=== PATIENT | female | born 1950 | race Caucasian/White ===

== ENCOUNTER 2019-01-31 21:45 | Inpatient (IN) | payer OTHER ==
[~2019-01-31] VITALS: Ht 160 cm; Wt 103.0 kg
[2019-02-03 17:28] VITALS: BP 110/44
--- NOTE | 2019-02-03 17:28 | NUR ---
PT ARRIVED TO UNIT VIA EMS. PT ACCOMPANIED BY DAUGHTER AND FAMILY. PT RUBBING ABD AND STATED SHE HAS PAIN TO ABD. UNABLE TO RATE PAIN LEVEL. PT HERE DUE TO THREATEN TO USE KNIFE TO CUT SELF DUE TO BEING A BURDON TO FAMILY. PT FELL IN SEPTEMBER THIS YEAR AND FX RT LEG. PT DAUGHTER AT BEDSIDE AND STATED THAT HER EMANUEL LEAVES HER UPSTAIRS WITH HER MEDICATION SITTING BESIDE HER AND GOES DOWNSTAIRS, PT FELL IN SEPTEMBER DUE TO OVER MEDICATION. PT DAUGHTER ALSO STATED THAT ONE TIME HE THOUGHT SHE WAS NOT BREATHING AND CHECKED HER PULSE AND SHE HAD A PULSE. PT ORIENTED TO SELF. PT WANTING TO DRINK TOMATO JUICE AND WANTING SOME TYPE OF TORTILLIA ROLL. DAUGHTER STATED THAT HER GRANDFATHER, PT FATHER WAS A CHILD MOLESTER AND THAT NEEDS TO BE BROUGHT UP. PT CAN ONLY TRANSFER VIA SUKUMAR LIFT. PT HAS SOME BRUISING TO ARMS BILATERALY DUE TO IV STICKS AT HOSPITAL. ARRIVED AND SIGNED DPOA PAPERWORK. HE STATED HE WILL BRING IN PAPERS TOMMORROW DUE TO THEM BEING IN THE BANK. PT VOIDED X1 INCON DURING ADMISSION.
[2019-02-03] MEDS ORDERED: KEFLEX500 M1 PO (20:12)
[2019-02-03] MEDS ORDERED: KRISTALOSE20 GM PO (20:14)
[2019-02-03] MEDS ORDERED: MELATONIN3 M1 PO (20:16)
[2019-02-03] MEDS ORDERED: FLOMAX0.4 MG PO (20:16)
[2019-02-03] MEDS ORDERED: AMITIZA 24 MCG24 MC1 PO (20:18)
[2019-02-03] MEDS ORDERED: VITAMIN C500 M2 PO (20:19)
[2019-02-03] MEDS ORDERED: BUPROPION XL300 MG PO (20:20)
[2019-02-03] MEDS ORDERED: EVOXAC30 MG PO (20:20)
[2019-02-03] MEDS ORDERED: VITAMIN D31000 UNIT PO (20:22)
[2019-02-03] MEDS ORDERED: CYPROHEPTADINE 44 MG PO (20:26)
[2019-02-03] MEDS ORDERED: FERROUS SULFAT325 MG PO (20:28)
[2019-02-03] MEDS ORDERED: LASIX 40 MG TAB40 MG PO (20:29)
[2019-02-03] MEDS ORDERED: NEURONTIN300 MG PO (20:29)
[2019-02-03] MEDS ORDERED: HYDROCODON-ACE1 EAC7 PO ×2 (20:32→20:33)
[2019-02-03] MEDS ORDERED: OMEPRAZOLE 20 M20 M1 PO (20:38)
[2019-02-03] MEDS ORDERED: XARELTO10 M1 PO (20:40)
[2019-02-03] MEDS ORDERED: KLOR-CON M2020 MEQ PO (20:40)
[2019-02-03] MEDS ORDERED: TIZANIDINE HCL4 M1 PO (20:45)
[2019-02-03] MEDS ORDERED: TRAZODONE 150150 M1 PO (20:46)
[2019-02-03 23:01] VITALS: BP 120/70
--- NOTE | 2019-02-04 01:58 | NUR ---
ASSUMED CARE FROM DAY SHIFT PT RESTING IN BED INCONTINENT OF URINE PT ABLE TO TURN FRON SIDE TO SIDE WHEN CLEANING AND CHANGING LINEN. ASSESSMENT COMPLETED WITH FAMILY AT BEDSIDE. WHEN MEDICATION WAS GIVEN PT STATES SHE TAKE MEDICATION WITH APPLE SAUCE, WHEN TAKEN PT THEN SPIT MEDICATION OUT UNTO THE FLOOR , WHY ASK PT WHY SHE SPIT MEDICATION OUT , SHE STATED" I WANTED TO". PUBLIC WORKS LABORER CAME TO FLOOR TO TALK WITH PT AND PT BECAME AGRESSIVE WITH HER BY GRABBING HER PAPERS OUT OF HAND. PT THEN TURNED TO SIDE AND WENT TO SLEEP. FREQ CHECKS FOR SAFETY, BED ALARM ON, WILL CONITNUE TO MONITOR AND REPORT CHANGES AND ABNORMAL FINDINGS.
[2019-02-04 09:12] VITALS: BP 121/68
[2019-02-04 10:09] VITALS: BP 121/68
--- NOTE | 2019-02-04 10:19 | NUR ---
0700 Received report from overnight shift, patient is in bed due to injury to femur. Patient denies any suicidal ideations, patient states she wants to go home. Patient ate and took medication. Patient is calm affect flat, I called outside pharmacy for medication list. Staff will continue to monitor patient for safety.
[2019-02-04 20:00] VITALS: BP 153/69
[2019-02-04 22:59] VITALS: BP 153/69
--- NOTE | 2019-02-05 00:35 | NUR ---
PATIENT HAS BE RESTING AND SLEEPING IN BED SINCE 190. SHE IS NON-WEIGHTBEARING ON RIGHT LEG. HYDROCODONE TAB GIVEN TO PATIENT AT 0020 FOR RIGHT KNEE PAIN. SHE HAS BEEN ON THE BED MEJIA WITH 2 DIARHEA STOOLS AND GAS. PATIENT HAS NOT HAD HALLUCINATIONS/DELUSIONS SO FAR THIS SHIFT. SHE HAS BEEN CALM AND COOPERATIVE. SHE DENIES SI. CONTINUING TO MONITOR STOOLS. PATIENT RESTING. BED ALARM ON AND BED IN LOW POSITION.
[2019-02-05 10:01] VITALS: BP 131/64; BP 153/69
--- NOTE | 2019-02-05 10:11 | NUR ---
0701 Report received from overnight shif, Staff helped patient get cleaned up some incontience last night. Patient complained that when she moves she in in pain. At breafast patient's hands very shakey, she spilled everything onto her self and the table. Patient flustered she was making a mwss. I talked with Nurse Practioner Inocencio and he ordered cogentin for the patient. I also suggested occupational therapy to help with daily life skills. Patient is quiet cooperative.
[2019-02-05 12:50] VITALS: BP 131/64
[2019-02-05 14:02] LABS: HEMATOCRIT 39.1 % (37.0-47.0); HEMOGLOBIN 13.2 gm/dL (12.0-15.0); MCH 31.8 pg (26.0-34.0); MCHC 33.7 g/dL (28.0-37.0); MCV 94.1 fL (80.0-100.0); PLATELET COUNT 187 thou/uL (150-400); RBC 4.15 mil/uL (4.20-5.00); WBC 7.4 thou/uL (4.0-11.0)
--- NOTE | 2019-02-05 14:16 | NUR ---
Gil met with pt while in the day room. She was soft spoken and had difficulty hearing and then responding to the questions. She was able to report that she was wanting to return home , to " see my dogs". Gil called and left 2 for pt's spouse this weekend
[2019-02-05 14:17] LABS: ALBUMIN 2.3 g/dL (3.4-5.0); CALCIUM 9.7 mg/dL (8.5-10.1); POTASSIUM 4.7 mmol/L (3.5-5.1); TOTAL BILIRUBIN 2.4 mg/dL (<0.1-1.0); TOTAL PROTEIN 6.3 g/dL (6.4-8.2)
[2019-02-05 14:44] LABS: ABSOLUTE NEUTROPHILS 3.6 thou/uL (1.4-8.2)
[2019-02-05 19:51] VITALS: BP 130/79
[2019-02-05 23:22] VITALS: BP 130/79
--- NOTE | 2019-02-06 00:25 | NUR ---
PATIENT SLEEPING SO SOUNDLY. PATIENT VERY SEDATED AND WAS NOT ABLE TO TAKE HER CEPHALEXIN TABLET. SHE HAS BEEN CALM AND COOPERATIVE TONIGHT. SPOKE 1:1 WITH PATIENT AND SHE STATES SHE IS A LITTLE DEPRESSED BECAUSE SHE JUST WANTS TO BE ABLE TO GET BETTER AND USE HER LEGS TO HELP HER GET AROUND. ENCOURAGED HER IN HER PENTECOSTAL DAVI TO TURN OVER TO GOD AND CONTINUE WORKING ON IMPROVEMENT AND GETTING BETTER. DISCUSSED THE IMPORTANCE OF GRATITUDE AND TO CONCENTRATE ON WHAT SHE HAS TO BE THANKFUL FOR. PATIENT SAID SHE FELT MORE ENCOURAGED AND KNOWS THIS IS A LONG RIDE. LISTENED AND VALIDATED HER FEELINGS OF DISCOURAGEMENT. PATIENT HAS NOT HAD ANY BM'S TONITE. SHE HAD 2 DIARHEA STOOLS LAST EVENING AND NONE SINCE THEN. NYSTATIN POWDER APPLIED TO GENITAL/GROIN FOLDS WHERE RED AND MOIST. HYDROCODONE 1 TAB PO GIVEN FOR PAIN WITH HS MEDS. PATIENT SLEEPING WELL.
--- NOTE | 2019-02-06 19:45 | NUR ---
ASSUMED CARE @ 19:15 ON 02/06/19. IN BED, EYES CLOSED, OPENS EYES TO VOICE, RIGHT LEG JERKING AND SITTING UP FROM THE ABDOMEN IN JERKY MOVEMENTS. DENIES PAIN, DENIES NEEDS, UNABLE TO GIVE NAME OR ANSWER ASSESSMENT QUESTION. WILL CONTINUE TO MONITOR Q 12 MINUTES FOR PATIENT SAFETY. BED IN LOW POSIITON, BED ALARM ON.
[2019-02-06 20:10] VITALS: BP 111/89
[2019-02-07 00:50] VITALS: BP 111/89
[2019-02-07 04:25] LABS: BE(vivo) 1.7 mmol/L (-2 to +3); HCO3 23.4 mmol/L (22.0-26.0); PCO2 28.2 mmHg (35.0-45.0); pH 7.536 (7.360-7.450)
[2019-02-07 04:29] LABS: PO2 0 mmHg (80.0-100.0)
--- NOTE | 2019-02-07 04:30 | NUR ---
This nurse entered room to assist with emelina care and linen change. Patient having involuntary movements throughout her body. Not responding to voice. Not responding to painful stimuli. Head tilted to right side. Mucous and saliva coming from right side of mouth. BP 150/62, HR 83, Temp 98.6, O2 92% RA. Luz NP called to assess patient. Rapid response called. Order placed for ABGs STAT, CT w/o contrast STAT, BMP/CBC/Ammonia level STAT. ABGs collected by RT. Patient currently in CT with staff assist x2. Blood sugar 73. Patient having decreased level of consciousness and increased involuntary body movements generalized about her body. No hx of seizure activity found in medical record. Medications were d/c'd on 02/06/19 due to increased lethargy. Patient was having some involuntary movements to her right lower extremity when assessed earlier in the shift but was responsive and stated her name.
[2019-02-07 05:16] LABS: BE(vivo) 4.2 mmol/L (-2 to +3); HCO3 27.3 mmol/L (22.0-26.0); PCO2 35.7 mmHg (35.0-45.0); PO2 61.3 mmHg (80.0-100.0); pH 7.501 (7.360-7.450); sO2 93.5 % (92.0-98.0)
[2019-02-07 05:44] LABS: HEMATOCRIT 35.4 % (37.0-47.0); HEMOGLOBIN 12.1 gm/dL (12.0-15.0); MCH 31.9 pg (26.0-34.0); MCHC 34.1 g/dL (28.0-37.0); MCV 93.6 fL (80.0-100.0); RBC 3.78 mil/uL (4.20-5.00); RDW 15.9 % (10.5-14.5); WBC 9.9 thou/uL (4.0-11.0)
[2019-02-07 05:47] LABS: URINE BILIRUBIN NEGATIVE (Negative); URINE BLOOD NEGATIVE (Negative); URINE CLARITY CLEAR; URINE COLOR YELLOW; URINE GLUCOSE-RANDOM* NEGATIVE (Negative); URINE KETONES TRACE (Negative); URINE LEUKOCYTES-REFLEX TRACE (Negative); URINE NITRITE-REFLEX NEGATIVE (Negative); URINE PROTEIN (DIPSTICK) NEGATIVE (Negative)
[2019-02-07 05:50] LABS: CALCIUM 9.3 mg/dL (8.5-10.1); CREATININE 1.4 mg/dL (0.6-1.0)
[2019-02-07 05:56] LABS: ALBUMIN 2.2 g/dL (3.4-5.0); DIRECT BILIRUBIN 1.6 mg/dL (<0.1-0.3); TOTAL BILIRUBIN 2.4 mg/dL (<0.1-1.0); TOTAL PROTEIN 5.9 g/dL (6.4-8.2)
--- NOTE | 2019-02-07 05:56 | NUR ---
TRICHOLOGIST ACTIVATED FOR AMS. SEE RAPID RESPONSE DOCUMENTATION FOR ADDITIONAL DETAILS AND INTERVENTIONS. PT TX'D TO MST.
--- NOTE | 2019-02-07 06:21 | NUR ---
Order obtained to admit patient to medical floor for AMS. Spoke with patient , Ford, to notify him of patient being transferred to room 350 for altered mental status. Notified him of blood results received and current patient condition. Ford asked about the visiting hours, which he was notified of. Ford appreciative of call. Personal belongings gathered and sent to patient to new room. 2 nurses signed on discharge personal belongings list.
--- NOTE | 2019-02-07 06:33 | NUR ---
report given to [facility], patient going to rm 350.
== END 2019-02-07 06:35 | disposition short-term general hospital (02) | DRG 885 ==
LOC: SBH 21:45
PROVIDERS: Internal Medicine; Nurse Practitioner Acute Care; ADMIT Psychiatry & Neurology Psychiatry
DX: F23 Brief psychotic disorder (principal); F33.2 Major depressive disorder, recurrent severe without psychotic features; J96.10 Chronic respiratory failure, unspecified whether with hypoxia or hypercapnia; Z68.41 Body mass index [BMI] 40.0-44.9, adult; N39.0 Urinary tract infection, site not specified; F29 Unspecified psychosis not due to a substance or known physiological condition; E66.01 Morbid (severe) obesity due to excess calories; I48.91 Unspecified atrial fibrillation; F41.9 Anxiety disorder, unspecified; K58.1 Irritable bowel syndrome with constipation; R32 Unspecified urinary incontinence; K58.0 Irritable bowel syndrome with diarrhea; Z91.041 Radiographic dye allergy status; Z88.6 Allergy status to analgesic agent; Z87.440 Personal history of urinary (tract) infections
CPT/HCPCS: 10880

== ENCOUNTER 2019-02-07 06:03 | Inpatient (IN) | payer OTHER ==
[~2019-02-07] VITALS: Ht 157.5 cm; Wt 102.2 kg
[~2019-02-07 06:03] MED LIST: AMITIZA 24 MCG24 MC1 PO; BUPROPION XL300 MG PO; CYPROHEPTADINE 44 MG PO; EVOXAC30 MG PO; FERROUS SULFAT325 MG PO; FLOMAX0.4 MG PO; HYDROCODON-ACE1 EAC7 PO; KEFLEX500 M1 PO; KLOR-CON M2020 MEQ PO; KRISTALOSE20 GM PO; LASIX 40 MG TAB40 MG PO; MELATONIN3 M1 PO; NEURONTIN300 MG PO; OMEPRAZOLE 20 M20 M1 PO; TIZANIDINE HCL4 M1 PO; TRAZODONE 150150 M1 PO; VITAMIN C500 M2 PO; VITAMIN D31000 UNIT PO; XARELTO10 M1 PO
[2019-02-07 07:30] VITALS: BP 124/51
[2019-02-07 11:30] VITALS: BP 121/47; BP 133/51
--- NOTE | 2019-02-07 15:43 | NUR ---
INITIAL ASSESSMENT: Pt evaluated for d/c planning needs. Reviewed chart and spoke with nurse, pt, spouse and daughter. Pt does not respond during interview. Pt had been living at home with and has been in and out of facilities since October 2018 when she fell. Pt was hospitalized at [facility], then went to [facility]. She transferred to [facility] for [facility] continuous churn care and then was hospitalized at [facility]. Pt was transferred [facility] at [facility] and then to acute care. Pt is non-weight bearing on her right leg and has been confined to wheelchair. Will remain available to assist as needed.
[2019-02-07 16:59] LABS: URINE BILIRUBIN NEGATIVE (Negative); URINE BLOOD NEGATIVE (Negative); URINE CLARITY CLEAR; URINE COLOR YELLOW; URINE GLUCOSE-RANDOM* NEGATIVE (Negative); URINE KETONES NEGATIVE (Negative); URINE LEUKOCYTES-REFLEX TRACE (Negative); URINE NITRITE-REFLEX NEGATIVE (Negative); URINE PROTEIN (DIPSTICK) NEGATIVE (Negative)
[2019-02-07 17:24] VITALS: BP 142/51
[2019-02-07 19:23] VITALS: BP 145/63
--- NOTE | 2019-02-07 19:41 | NUR ---
pt admitted to 3 W about 6am, pt is confused, and pt does not talk, and does not follow commands, pt only opens her eyes by voice, pt is on npo , and she is contiuing D5 NS @125ML/HR, NG tube in place, RN has called dr pt does have urine for 7hr, bladder scan result show 350ml. new order Morrow insert. pt's vs and o2sat are stable, pt's family stay at pt's bedside.
[2019-02-08 03:37] VITALS: BP 150/87
--- NOTE | 2019-02-08 06:06 | NUR ---
PT ARRIVED TO UNIT FROM [address] [place] [address]. PT HAS BEEN COMATOSE ALL SHIFT, WITH TREMORS. PT GIVEN LACTULOSE X2 OVER SHIFT. AT 0100 PT STARTED TO RUN 120-130 HR FOR 15 MIN. PULLED PT UP IN BED, PUT ON 4L NC, AND GOT ORDER FOR 5MG LOPRESSOR IV. HR DROPPED TO 80-105 FOR REST OF SHIFT. PT HAS NG TUBE IN PLACE. FAMILY ROOMING IN. SISTER STATES, "SHE TAKES A LOT OF PAIN MEDICATION WHEN SHE IS AT HOME." MORENO IN PLACE. NO BM OVERNIGHT. HOURLY ROUNDING.
[2019-02-08 08:08] VITALS: BP 149/95
[2019-02-08 08:50] LABS: ALBUMIN 2.3 g/dL (3.4-5.0); CALCIUM 8.9 mg/dL (8.5-10.1); CREATININE 1.2 mg/dL (0.6-1.0); POTASSIUM 4.5 mmol/L (3.5-5.1); TOTAL BILIRUBIN 3.1 mg/dL (<0.1-1.0); TOTAL PROTEIN 6.6 g/dL (6.4-8.2)
--- NOTE | 2019-02-08 09:53 | NUR ---
ASSUMED CARE OF PATIENT AT 0700. AROUND 0800 PATIENT FAMILY ALERTED RN THAT OXYGEN SATURATION WAS BETWEEN 88-89. RT WAS ON THE FLOOR AND RN SPOKE WITH RT WHO MADE HER WAY TO THEIR ROOM AND PLACED PATIENT ON VENTIMASK 50% 15L. PHYSICAN AWARE AND RN SUGGESTED PULMONARY CONSULT.
--- NOTE | 2019-02-08 10:19 | NUR ---
WOUND CARE NOTE; PT UNRESPONSIVE, SISTER PRESENT, JUAN CARLOS RASH LOLIS AREA, RECOMMEND ANTIFUNGAL CREAM DAILY AND PRN, MORENO CATH IN PLACE, PRESSURE INJURY STAGE 2 SACRAL AREA, RECOMMEND Z GUARD, COVER W/ FOAM DRSG DAILY AND PRN, SEE PROCESS INTERVENTIONS FOR DETAILS. AIR LOSS PUMP ORDERED FOR BED, LAYAWAY CLERK INFORMED OF RECOMMENDATIONS
[2019-02-08 11:10] VITALS: BP 115/79
--- NOTE | 2019-02-08 11:57 | NUR ---
SW reviewed chart and spoke with nursing and attending physician. Pt is not progressing. Pt's family to see if pt's condition improves by tomorrow. If no improvement, pt's family will consider comfort care measures. SW is following to assist as needed with discharge planning.
--- NOTE | 2019-02-08 12:01 | NUR ---
Assess due to RD consult received. Pt recently on SBH and this typewriter ribbon winder completed full nutrition assessment. At time pt was not eating, lethargic. Has required transfer to acute unit for AMS, unresponsiveness. Class III obesity and has not eaten for several days. NPO status for now. Also stage II sacral pressure ulcer. On IVF. Chart reviewed and may be considering hospice. Will follow up again on 02/10 for more information on status.
[2019-02-08 15:31] VITALS: BP 111/58
--- NOTE | 2019-02-08 18:42 | NUR ---
ASSUMED CARE OF PATIENT AT 0700. PATIENT ALERT/ORIENTED X 0. PATIENT RESPONDS TO PAINFUL STIMULI. PATIENT ON VENTIMASK PLACED BY RT AND PHYSICIAN WAS INFORMED OF SATURATIONS DIPPING DOWN TO 88-89. PATIENT HAS NG TUBE THAT SHE RECIEVES MEDICATIONS FOR AND HAS BEEN FLUSHED FOR PATENCY. HOSPICE IS BEING CONSIDERED.
[2019-02-08 19:25] VITALS: BP 137/87
[2019-02-09 05:34] VITALS: BP 107/65
--- NOTE | 2019-02-09 05:36 | NUR ---
PT WAS MOVED TO COMFORT CARE AND A NO CODE STATUS. LABS DC'D. IV MORPHINE GIVEN Q2. PT WAS PLACED ON REBREATHER AT 15L. PT AND DAUGHTER ROOMING IN. PT HAD 1ST BOWEL MOVEMENT SINCE 02/04. PT STILL ON TELE TO MONITOR THE SITUATION.
[2019-02-09 07:27] VITALS: BP 104/50
--- NOTE | 2019-02-09 13:45 | NUR ---
SW reviewed chart and spoke with attending physician. Pt is now a DNR and comfort care measures initiated. SW is following to assist as needed.
[2019-02-09 19:20] VITALS: BP 106/60
--- NOTE | 2019-02-09 19:26 | NUR ---
PT MADE COMFORT CARE THIS MORNING. ALL MEDS DC'D EXCEPT COMFORT MEDS. IV SALINE LOCKED. NG DC'D. 2L NC PLACED ON PT. PRN MEDICATIONS GIVEN NEEDED FOR AIR HUNGER AND ANXIETY.
--- NOTE | 2019-02-10 04:16 | NUR ---
SLEPT PART OF SHIFT WITH FAMILY AT BEDSIDE. MORPHINE AND ATIVAN GIVEN NEEDED FOR AIR HUNGER AND RESTLESSNESS. AIR HUNGER INCREASED AROUND A200 AND ABDIRAHMAN VITICULTURIST HERE TO EVALUATE. ADDED SCOPALIMINE PATCH FOR INCREASED SECREATIONS. MORPHINE INCREASED FOR AIR HUNGER. PATIENT REMAINS COMFORT CARE AND FAMILY REMAINS AT BEDSIDE. CONTINUE TO ASSES CLOSELY.
--- NOTE | 2019-02-10 05:34 | NUR ---
8857 PATIENT ASYSTOLE ON TELEMETRY. NOTIFIED ABDIRAHMAN BLACKJACK PIT BOSS AND OBTAINED ORDER FOR 2 NURSES TO PRONOUNCE. PRONOUNCED BY Carolyn MUNOZ RN AND Carolyn CARBALLO RN. FAMILY AT BEDSIDE. 1110 FAMILY HAS GONE HOME.
--- NOTE | 2019-02-10 06:53 | NUR ---
0630 RELEASED TO SECURITY
--- NOTE | 2019-02-13 07:55 | HC ---
[facility] [place] [address] CONSULTATION Name: DAVID HAGEN Room #: 350-P [facility] IN M.R.#: [id number] Admission: 02/07/19 Attend Phys: Frank Bergeron Discharge: 02/10/19 Date of : 48 Report #: [id number] THIS REPORT FOR: //name// CC: David Thomas Frank Bergeron DATE OF SERVICE: 02/08/2019 HISTORY OF PRESENT ILLNESS: This is a 68-year-old female patient who has had a prolonged medical history. She had a right leg fracture requiring operative intervention, apparently had been admitted to the group home, developed urinary tract infection, hallucinations. She was admitted to the Geriatric Psych Unit. She became progressively somnolent with encephalopathy. She is noted to have several areas of skin breakdown and I have been asked to see her in this regard. The patient can provide no information about herself. Her eyes are closed. She is twitching and moaning intermittently, but is not responsive to any questioning. Her is at the bedside. He is very quiet and does not provide much information either. PAST MEDICAL HISTORY: Positive for urinary tract infection, hepatic steatosis, history of suicidal ideation, hypokalemia, right leg fracture, chronic respiratory failure, obesity and encephalopathy. SOCIAL HISTORY: Negative for alcohol or tobacco use. FAMILY HISTORY: Unknown. REVIEW OF SYSTEMS: Not obtainable due to the patient's condition. CURRENT MEDICATIONS: Include Keflex, lactulose, melatonin, Flomax, Amitiza, vitamin C, bupropion, Evoxac, cholecalciferol, cyproheptadine, Lasix, Neurontin, hydrocodone, acetaminophen, omeprazole, Klor-Con, Xarelto, tizanidine, trazodone. ALLERGIES: IODINE AND OXYCODONE. REVIEW OF SYSTEMS: Not obtainable due to the patient's condition. PHYSICAL EXAMINATION: VITAL SIGNS: Temperature 37.1, pulse 107, respiratory rate 25, blood pressure 111/58. GENERAL: This is a chronically ill-appearing female patient who is somnolent, moaning and twitching. She is not responsive to verbal stimulation. HEENT: Head normocephalic. NECK: Supple. LUNGS: Diminished. [address] [address] CONSULTATION Name: DAVID HAGEN Room #: [address] [place] [address]..#: [id number] Admission: 02/07/19 Attend Phys: Frank Bergeron Discharge: 02/10/19 Date of : 48 Report #: [id number] HEART: Regular with a subtle murmur. ABDOMEN: Soft, nontender. Perineal region demonstrates yeast dermatitis in the perineal skin folds. Sacral region demonstrates stage 2 sacral pressure ulcer. NEUROLOGIC: The patient is twitching. It is difficult to assess whether she is symmetrical, will not follow commands. LABORATORY STUDIES: Sodium 139, potassium 4.5, chloride 104, CO2 of 25, BUN 29, creatinine 1.2, glucose 157, total bilirubin 3.1, AST 146, ALT 64, alkaline phosphatase 331. Ammonia is 94 and albumin 2.3. CLINICAL IMPRESSION: 1. Perineal yeast dermatitis. 2. Stage 2 sacral pressure ulceration. 3. Encephalopathy. 4. Hepatic steatosis. 5. Moderate protein-calorie malnutrition. 6. Morbid obesity. RECOMMENDATIONS: The patient will be placed on low air loss mattress, recommend q. 2 hour turning and repositioning, barrier cream to the sacral region b.i.d., clotrimazole to the perineal skin folds, nutritional support and OT, PT when she is able and continue with medical management. <ELECTRONICALLY SIGNED> By: Michael Chris MD 02/13/19 0755 [id number] [id number] Michael Chris MD /nt
--- NOTE | 2019-02-17 14:17 | EEG ---
[facility] [place] [address] ELECTROENCEPHALOGRAM Name: DAVID HAGEN Room #: 350-P [facility] IN M.R.#: [id number] Admission: 02/07/19 Attend Phys: Frank Rebollar Discharge: 02/10/19 Date of : 48 Report #: [id number] THIS REPORT FOR: //name// CC: David Bergeron DATE OF SERVICE: 02/07/2019 This patient is being evaluated for altered mental status. The patient's EEG is very disorganized and poorly formed. It is slow and it shows triphasic waves, which is frontally predominant. Photic stimulation is unremarkable. IMPRESSION: This is a severely abnormal EEG consistent with severe encephalopathy. The patient should be further worked up for that. The results will be called to Dr. Bergeron by the tissue technician. <ELECTRONICALLY SIGNED> By: Nathaniel Hill MD 02/17/19 1417 1211 1220 Nathaniel Hill MD /nt
--- NOTE | 2019-02-17 14:17 | HC ---
[facility] [place] [address] CONSULTATION Name: DAVID HAGEN Room #: 350-P [facility] IN M.R.#: [id number] Admission: 02/07/19 Attend Phys: Frank Bergeron Discharge: 02/10/19 Date of : 48 Report #: [id number] THIS REPORT FOR: //name// CC: David Thomas Frank Bergeron DATE OF SERVICE: 02/07/2019 ROOM NUMBER: 350. HISTORY OF PRESENT ILLNESS: This is a 68-year-old female patient who was seen by me for unresponsiveness. This patient's history is either from the record or talking to the nurses as the patient is unable to provide any history. The patient was in [facility]. She was admitted to Behavioral Unit here. She became unresponsive. It is not clear when she became unresponsive. The daughter indicated that she saw her on Wednesday and she was at her baseline. Then, she saw her yesterday and she was like this. She has not changed much. Daughter also indicated that she had a progressive decline in her memory for about 1 year. It affects both short-term and long-term memory. This patient also had a lifelong psychiatric problems according to the daughter. REVIEW OF SYSTEMS: Also positive for surgery in the legs. She had psychosis and hallucination. She has a history of nonspecific pain. She does not have any energy. She does have a history of what daughter describes as a fatty liver. She never drank alcohol. A 14-point review of system was carried out, the best it could be carried out and it was positive as described above. PAST MEDICAL HISTORY: Positive for progressive decline in cognitive function for about a year. FAMILY HISTORY: Noncontributory. SOCIAL HISTORY: She does not drink alcohol. PHYSICAL EXAMINATION: Indicate that she is unresponsive. She has no verbal output and she does not follow simple commands. She keeps her eyes closed and with a downward gaze. I cannot tell about the pupil in this patient. She does not appear to be in any respiratory difficulty. Blood pressure is 133/51, respirations 16, pulse is 76, temperature is 97. LABORATORY DATA: Labs are not available but prior labs indicate increased ammonia level and increased bilirubin. IMPRESSION: This patient's EEG is severely abnormal with the triphasic wave. It is most likely hepatic encephalopathy. Although venous ammonia has not an [facility] [address] [place] [address] CONSULTATION Name: DAVID HAGEN Room #: 350-P [facility] IN ..#: [id number] Admission: 02/07/19 Attend Phys: Frank Bergeron Discharge: 02/10/19 Date of : 48 Report #: [id number] exact correlation with encephalopathy but when be combined with the EEG it is probably because of that and probably because of other conditions which may or may not be present. I had a long talk with the patient's daughter. I discussed with her that if they want to be aggressive then she will need a spinal tap after checking PT and PTT and that she will need an MRI. If they want to be conservative because of the poor quality of the life then we can continue to monitor and treat her systemic conditions and see how she does. Today, she wants to talk to her aunt but presently she wants to be on very conservative treatment. That appeared to be reasonable and I will suggest continue management of systemic condition and see how she does. Code status should be discussed with the family. <ELECTRONICALLY SIGNED> By: Nathaniel Hill MD 02/17/19 1417 1257 1335 Nathaniel Hill MD /nt
== END 2019-02-10 04:58 | DRG 70 ==
LOC: 3W 06:03
PROVIDERS: ADMIT Hospitalist
DX: G93.41 Metabolic encephalopathy (principal); E43 Unspecified severe protein-calorie malnutrition; N39.0 Urinary tract infection, site not specified; Z68.41 Body mass index [BMI] 40.0-44.9, adult; G93.40 Encephalopathy, unspecified; K72.90 Hepatic failure, unspecified without coma; L89.152 Pressure ulcer of sacral region, stage 2; E66.9 Obesity, unspecified; K76.0 Fatty (change of) liver, not elsewhere classified; L30.8 Other specified dermatitis; B37.2 Candidiasis of skin and nail; Z88.6 Allergy status to analgesic agent; Z91.041 Radiographic dye allergy status; Z87.81 Personal history of (healed) traumatic fracture
CPT/HCPCS: 10879